=== PATIENT | female | born 1980 ===

== ENCOUNTER 2017-05-24 15:48 | Emergency (ER) | payer OTHER ==
[2017-05-24 15:56] VITALS: BP 133/77; PULSE 88; RESP 16; TEMP 99.4; O2SAT 100
--- NOTE | 2017-05-24 16:53 | ED PDOC ---
HPI: Headache Time Seen by Provider: 05/24/17 16:05 Chief Complaint (Nursing): Headache Chief Complaint (Provider): Headache History Per: Patient History/Exam Limitations: no limitations Onset/Duration Of Symptoms: Days (x 5 days) Current Symptoms Are (Timing): Still Present Additional Complaint(s): Tania Early is a 37-year-old female with no previous medical history who presents to the emergency department with complaints of a sore throat and headache, ongoing for the past 5 days. She also complains of a cough, producing sputum, for 1 day. She reports taking Tylenol every day for the past 5 days, without relief. PMD: None known Past Medical History Reviewed: Historical Data, Nursing Documentation, Vital Signs Vital Signs: Last Vital Signs Temp 99.4 F 05/24/17 15:52 Pulse 88 05/24/17 15:52 Resp 16 05/24/17 15:52 BP 133/77 05/24/17 15:52 Pulse Ox 100 05/24/17 15:52 - Medical History PMH: No Chronic Diseases - Surgical History Surgical History: No Surg Hx - Family History Family History: States: Unknown Family Hx - Home Medications Home Medications: Ambulatory Orders Medication Instructions Recorded Amoxicillin/Clavulanate Pota 1 tab PO BID #20 tab 09/11/14 [Augmentin 875 mg-125 mg] Neomycin/Polymyxin/Hydrocortis 4 drop OT TID #1 bottle 09/11/14 [Cortisporin Otic Susp] Fexofenadine/Pseudoephedrine 1 each PO BID PRN #12 tab.er.12h 05/24/17 [Camilla-D 12 Hour Tablet] - Allergies Allergies/Adverse Reactions: Allergies Allergy/AdvReac Type Severity Reaction Status Date / Time No Known Allergies Allergy Verified 05/24/17 15:52 Review of Systems ROS Statement: Except As Marked, All Systems Reviewed And Found Negative ENT: Positive for: Throat Pain Respiratory: Positive for: Cough Neurological: Positive for: Headache Physical Exam - Reviewed Nursing Documentation Reviewed: Yes Vital Signs Reviewed: Yes - Physical Exam Appears: Positive for: Non-toxic, No Acute Distress Head Exam: Positive for: ATRAUMATIC, NORMAL INSPECTION, NORMOCEPHALIC Skin: Positive for: Normal Color, Warm, Dry Eye Exam: Positive for: Normal appearance ENT: Positive for: Normal ENT Inspection Neck: Positive for: Normal, Painless ROM, Supple Cardiovascular/Chest: Positive for: Regular Rate, Rhythm Respiratory: Positive for: CNT, Normal Breath Sounds Extremity: Positive for: Normal ROM. Negative for: Deformity Neurologic/Psych: Positive for: Alert, Oriented - ECG O2 Sat by Pulse Oximetry: 100 (RA) Pulse Ox Interpretation: Normal Medical Decision Making Medical Decision Making: Time: 16:45 Initial Plan: --Pending Rapid Strep test Scribe Attestation: Documented by Bianka Lamb, acting as a scribe for Marzena Blum PA-C Provider Scribe Attestation: All medical record entries made by the Scribe were at my direction and personally dictated by me. I have reviewed the chart and agree that the record accurately reflects my personal performance of the history, physical exam, medical decision making, and the department course for this patient. I have also personally directed, reviewed, and agree with the discharge instructions and disposition. Disposition - Clinical Impression Clinical Impression: Common cold - Patient ED Disposition Is Patient to be Admitted: No Counseled Patient/Family Regarding: Diagnosis, Need For Followup, Rx Given - Disposition Referrals: [facility] [Outside] Disposition: Routine/Home Disposition Time: 18:06 Condition: GOOD Prescriptions: Fexofenadine/Pseudoephedrine [Camilla-D 12 Hour Tablet] 1 each PO BID PRN #12 tab.er.12h PRN Reason: Cough And Congestion Instructions: Cold Symptoms (ED) Print Language: [id number]
== END 2017-05-24 18:15 | disposition home or self-care (01) ==
LOC: H.ER 15:48
DX: J00 Acute nasopharyngitis [common cold] (principal)